=== PATIENT | female | born 1965 | race Caucasian/White ===

== ENCOUNTER → 2017-06-20 | Outpatient (CLI) | payer BC ==
[~2017-06-20] MED LIST: ABX; IBUPROFEN 600600 M1 PO; PEPCID20 MG PO; SYNTHROID137 MCG PO; ZOCOR20 MG PO
== END ==
LOC: RAD 00:38
DX: Z12.31 Encounter for screening mammogram for malignant neoplasm of breast (principal)

== ENCOUNTER → 2018-07-20 | Outpatient (CLI) | payer BC | LOC: RAD 01:19 | DX: Z12.31 Encounter for screening mammogram for malignant neoplasm of breast (principal) ==

== ENCOUNTER → 2018-09-24 | Outpatient (CLI) | payer BC | LOC: ULTRA 12:34 | DX: R11.0 Nausea (principal); R10.11 Right upper quadrant pain ==

== ENCOUNTER → 2019-08-05 | Outpatient (CLI) | payer BC | LOC: RAD 09:48 | DX: Z12.31 Encounter for screening mammogram for malignant neoplasm of breast (principal) ==

== ENCOUNTER 2020-07-20 12:11 | Emergency (ER) | payer OTHER ==
[~2020-07-20] VITALS: Ht 152.4 cm; Wt 70.3 kg
[2020-07-20] MEDS ORDERED: SYNTHROID125 MC1 PO (13:43)
[2020-07-20] MEDS ORDERED: ZOCOR 20 MG TAB20 M1 PO (13:43)
[2020-07-20] MEDS ORDERED: ONDANSETRON HCL4 M2 PO (14:34)
[2020-07-20 14:58] VITALS: BP 187/92
== END 2020-07-20 14:58 | disposition home or self-care (01) ==
LOC: ER 12:11
DX: S06.0X0A Concussion without loss of consciousness, initial encounter (principal); E03.9 Hypothyroidism, unspecified; Z79.899 Other long term (current) drug therapy; W18.39XA Other fall on same level, initial encounter; Y93.89 Activity, other specified; Y92.89 Other specified places as the place of occurrence of the external cause; Y99.0 Civilian activity done for income or pay

== ENCOUNTER → 2020-09-18 | Outpatient (CLI) | payer BC ==
[~2020-09-18] MED LIST changes: +ONDANSETRON HCL4 M2 PO; +SYNTHROID125 MC1 PO; +ZOCOR 20 MG TAB20 M1 PO
== END ==
LOC: BC 13:35
PROVIDERS: ATTEND Family Medicine
DX: Z12.31 Encounter for screening mammogram for malignant neoplasm of breast (principal)

== ENCOUNTER 2021-06-28 10:05 | Inpatient (IN) | payer BC ==
[~2021-06-28] VITALS: Ht 152.4 cm; Wt 55.8 kg
[~2021-06-28 10:05] MED LIST changes: -SYNTHROID137 MCG PO
[2021-06-28 10:10] VITALS: BP 123/64
--- NOTE | 2021-06-28 13:02 | EKG ---
[address] [employer] [address] ELECTROCARDIOGRAM REPORT Name: GEORGEPollyTATYANALEA Deangelo Room #: [facility]#: [id number] Admission: 06/28/21 Attend Phys: Discharge: Date of : 67 Report #: [id number] [facility] ED Test Date: 2021-06-28 Test Time: 10:17:26 Pat Name: LEA CAZARES Department: Room: Gender: F Transition Lead: ELBA : 1965 Requested By: Alesha Nielsen Order Number: [id number] MD: Denys Jiang Measurements Intervals [place] Rate: 88 P: 38 NH: 163 QRS: 29 QRSD: 89 T: 4 QT: 332 QTc: 402 Interpretive Statements Sinus rhythm Probable left atrial enlargement Consider inferior infarct Compared to ECG 03/18/2013 19:36:39 Myocardial infarct finding now present Electronically Signed On 06-28-2021 13:02:12 HAND IRONER by Denys Jiang [email or web address] <ELECTRONICALLY SIGNED> By: Denys Jiang MD, [facility] 06/28/21 1302 [id number] Denys Jiang MD, FACC /EPI
[2021-06-28 13:20] LABS: CALCIUM 8.2 mg/dL (8.5-10.1); CREATININE 0.7 mg/dL (0.6-1.0)
[2021-06-28 13:30] LABS: ALBUMIN 2.9 g/dL (3.4-5.0); TOTAL BILIRUBIN 0.4 mg/dL (0.2-1.0); TOTAL PROTEIN 7.8 g/dL (6.4-8.2)
[2021-06-28 13:34] LABS: HEMATOCRIT 41.6 % (37.0-47.0); HEMOGLOBIN 13.5 gm/dL (12.0-15.0); MCH 25.5 pg (26.0-34.0); MCHC 32.5 g/dL (28.0-37.0); MCV 78.5 fL (80.0-100.0); PLATELET COUNT 244 thou/uL (150-400); RDW 15.4 % (10.5-14.5); WBC 2.8 thou/uL (4.0-11.0)
[2021-06-28 13:46] LABS: APTT 32.8 Seconds (24.5-32.8); D-DIMER 0.33 ug/mLFEU (0.19-0.50); INR 0.96; PROTIME 10.5 Seconds (10.5-12.1)
[2021-06-28 14:02] LABS: ABSOLUTE NEUTROPHILS 2.2 thou/uL (1.4-8.2)
[2021-06-28 20:00] VITALS: BP 107/56
[2021-06-29 02:51] LABS: CREATININE 0.7 mg/dL (0.6-1.0); POTASSIUM 3.6 mmol/L (3.5-5.1)
[2021-06-29 02:54] LABS: ALBUMIN 2.9 g/dL (3.4-5.0); PHOSPHORUS 3.9 mg/dL (2.6-4.7)
[2021-06-29 04:31] VITALS: BP 98/64
[2021-06-29 06:58] VITALS: BP 98/64
[2021-06-29 19:21] VITALS: BP 112/64
[2021-06-30 05:38] VITALS: BP 111/69
[2021-06-30 06:13] LABS: ABSOLUTE NEUTROPHILS 5.3 thou/uL (1.4-8.2); BASOPHILS 0.1 % (0.0-2.0); HEMATOCRIT 38.9 % (37.0-47.0); MCH 25.8 pg (26.0-34.0); MCHC 33.5 g/dL (28.0-37.0); MCV 77.1 fL (80.0-100.0); MONOCYTES 7.3 % (1.0-8.0); POLYS 83.6 % (36.0-66.0); RBC 5.05 mil/uL (4.20-5.00); RDW 15.3 % (10.5-14.5); WBC 6.3 thou/uL (4.0-11.0)
[2021-06-30 06:20] LABS: PLATELET COUNT 361 thou/uL (150-400)
[2021-06-30 06:27] LABS: D-DIMER 0.22 ug/mLFEU (0.19-0.50)
[2021-06-30 06:52] LABS: ALBUMIN 2.7 g/dL (3.4-5.0); ANION GAP 14 mmol/L (7-16); BUN 23 mg/dL (7-18); CALCIUM 8.5 mg/dL (8.5-10.1); CHLORIDE 100 mmol/L (98-107); CO2 24 mmol/L (21-32); CREATININE 0.8 mg/dL (0.6-1.0); DIRECT BILIRUBIN < 0.1 mg/dL (<0.1-0.2); GLUCOSE 140 mg/dL (74-106); PHOSPHORUS 4.3 mg/dL (2.6-4.7); POTASSIUM 3.6 mmol/L (3.5-5.1); SGOT 22 U/L (15-37); SGPT 23 U/L (14-59); SODIUM 138 mmol/L (136-145); TOTAL BILIRUBIN 0.2 mg/dL (0.2-1.0); TOTAL PROTEIN 7.2 g/dL (6.4-8.2)
[2021-06-30 18:19] VITALS: BP 115/68
[2021-06-30 23:30] VITALS: BP 104/64
[2021-07-01 07:08] LABS: ABSOLUTE NEUTROPHILS 5.1 thou/uL (1.4-8.2); BASOPHILS 0.3 % (0.0-2.0); HEMATOCRIT 38.8 % (37.0-47.0); HEMOGLOBIN 13.2 gm/dL (12.0-15.0); LYMPHOCYTES 12.4 % (24.0-44.0); MCH 26.3 pg (26.0-34.0); MCHC 33.9 g/dL (28.0-37.0); MCV 77.4 fL (80.0-100.0); MONOCYTES 8.3 % (1.0-8.0); PLATELET COUNT 375 thou/uL (150-400); RBC 5.01 mil/uL (4.20-5.00); RDW 15.1 % (10.5-14.5); WBC 6.4 thou/uL (4.0-11.0)
[2021-07-01 07:19] LABS: ALBUMIN 2.7 g/dL (3.4-5.0); CALCIUM 8.2 mg/dL (8.5-10.1); CREATININE 0.8 mg/dL (0.6-1.0); POTASSIUM 3.1 mmol/L (3.5-5.1); TOTAL BILIRUBIN 0.4 mg/dL (0.2-1.0); TOTAL PROTEIN 7.1 g/dL (6.4-8.2)
--- NOTE | 2021-07-01 15:30 | NUR ---
PT HAS RESPIRATORY DISTRESS UPON STANDING EACH TIME TO USE THE BATHROOM.
[2021-07-01 20:33] VITALS: BP 110/68
[2021-07-02 00:05] LABS: HIV ANTIBODY Non Reactive (Non Reactive)
[2021-07-02 04:09] VITALS: BP 113/69
[2021-07-02 05:44] LABS: ABSOLUTE NEUTROPHILS 3.6 thou/uL (1.4-8.2); BASOPHILS 0.3 % (0.0-2.0); HEMATOCRIT 41.5 % (37.0-47.0); HEMOGLOBIN 13.8 gm/dL (12.0-15.0); LYMPHOCYTES 16.1 % (24.0-44.0); MCHC 33.1 g/dL (28.0-37.0); MCV 78.4 fL (80.0-100.0); MONOCYTES 11.7 % (1.0-8.0); PLATELET COUNT 429 thou/uL (150-400); POLYS 71.9 % (36.0-66.0); RDW 15.2 % (10.5-14.5)
[2021-07-02 06:09] LABS: ALBUMIN 2.8 g/dL (3.4-5.0); CALCIUM 8.5 mg/dL (8.5-10.1); CREATININE 0.7 mg/dL (0.6-1.0); POTASSIUM 3.5 mmol/L (3.5-5.1); TOTAL BILIRUBIN 0.4 mg/dL (0.2-1.0); TOTAL PROTEIN 7.2 g/dL (6.4-8.2)
[2021-07-02 12:20] VITALS: BP 113/69
--- NOTE | 2021-07-02 17:03 | NUR ---
ELVIN TRIED CALLING PHYSICIAN CONSULT @6248 x3 TIMES AND WAS UNABLE TO GET AHOLD OF ANYONE FOR THE CONSULT.
--- NOTE | 2021-07-02 17:10 | NUR ---
55 year old female presented to the ED on 06/28/21 with worsening COVID symptoms and reports testing positive on 06/23/21. The patient was admitted with Covid pneumonia, SARS and respiratory failure, neutropenia, hyponatremia and reports being unvaccinated. At present the patient is will remain on both antiviral and anti-inflammatory medications and followed by the medical team. 02 remains at 3 liters per NC. Listed as her next of kin is Eladia Rogers at [phone]. HOWEVER noted that daughter is too currently in room 170-17. As care progresses PT/OT orders will need to be obtained and CM will follow for discharge needs as patient had been independent and working prior to admission.
--- NOTE | 2021-07-02 20:00 | NUR ---
PT TRANSFERRED TO 3W. SHE IS ALERT AND ORIENTED X4. ON 3 LITER N/C. DENIES PIAN. MORIAH AND COOPERATIVE. [facility].
[2021-07-02 23:38] VITALS: BP 105/63
[2021-07-03 04:11] VITALS: BP 138/83
[2021-07-03 05:42] LABS: ABSOLUTE NEUTROPHILS 4.9 thou/uL (1.4-8.2); BASOPHILS 0.2 % (0.0-2.0); EOSINOPHILS 0.1 % (0.0-3.0); HEMATOCRIT 42.7 % (37.0-47.0); HEMOGLOBIN 14.1 gm/dL (12.0-15.0); LYMPHOCYTES 13.9 % (24.0-44.0); MCH 25.8 pg (26.0-34.0); MCHC 32.9 g/dL (28.0-37.0); MCV 78.2 fL (80.0-100.0); MONOCYTES 9.3 % (1.0-8.0); PLATELET COUNT 440 thou/uL (150-400); POLYS 76.5 % (36.0-66.0); RBC 5.46 mil/uL (4.20-5.00); RDW 15.2 % (10.5-14.5); WBC 6.4 thou/uL (4.0-11.0)
[2021-07-03 06:33] LABS: CALCIUM 8.6 mg/dL (8.5-10.1); CREATININE 0.7 mg/dL (0.6-1.0); PHOSPHORUS 3.5 mg/dL (2.5-4.9); POTASSIUM 3.4 mmol/L (3.5-5.1)
[2021-07-03 07:46] VITALS: BP 126/74
[2021-07-03 15:45] VITALS: BP 102/64
--- NOTE | 2021-07-03 16:17 | NUR ---
SW reviewed chart and spoke with nursing and attending physician. Pt in Enhanced Isolation due to COVID. Pt is afebrile and on 3L of O2. Pt is on IV steroids and Remdesivir. Rest/exercise oximetry completed earlier today. Pt was 88% on room air and 80% with activity. Pt needed 8L to get to 90%. Attending physician updated. PT/OT evals ordered today to assist with recommendations for discharge. SW is following to assist as needed with discharge planning.
[2021-07-03 19:32] VITALS: BP 140/84
[2021-07-04 04:29] VITALS: BP 128/80
[2021-07-04 05:36] LABS: ANION GAP 11 mmol/L (7-16); BUN 25 mg/dL (7-18); CALCIUM 8.3 mg/dL (8.5-10.1); CHLORIDE 98 mmol/L (98-107); CO2 27 mmol/L (21-32); CREATININE 0.8 mg/dL (0.6-1.0); DIRECT BILIRUBIN < 0.1 mg/dL (<0.1-0.2); GLUCOSE 142 mg/dL (74-106); PHOSPHORUS 4.3 mg/dL (2.5-4.9); POTASSIUM 3.6 mmol/L (3.5-5.1); SGOT 20 U/L (15-37); SGPT 38 U/L (30-65); SODIUM 136 mmol/L (136-145); TOTAL BILIRUBIN 0.3 mg/dL (0.2-1.0); TOTAL PROTEIN 6.6 g/dL (6.4-8.2)
--- NOTE | 2021-07-04 06:46 | NUR ---
ASSUMED CARE OF PT AT 1900. PT ASSESSED TO BE AOX4 55F PRESENTING WITH COVID PNEUMONIA. PT RESTED QUIETLY THROUGHOUT THE NIGHT IN ROOM WITH NO COMPLAINTS, VSS. PT RUNS SR ON TELEMETRY, ON 3L PER NC, SUGARS FAIRLY HIGH, NO SKIN ISSUES, GETS UP TO BEDSIDE COMMODE AD RODOLFO, TAKES PILLS EXTREMELY SLOWLY, AND RESTS QUIETLY WITH AIDE OF SLEEPING PILL. NO FURTHER ISSUES AT THIS TIME, WILL PASS ON TO DAY SHIFT RN.
[2021-07-04 07:40] VITALS: BP 120/78
--- NOTE | 2021-07-04 08:32 | NUR ---
PT AOX4, ON 3LNC BREATHING REGULARLY. NOTED WHEN PT BLOWN NOSE STREAKS OF BLOOD WILL CONTINUE TO MONITOR.
[2021-07-04 14:10] LABS: T-SPOT.TB Negative
--- NOTE | 2021-07-04 15:07 | NUR ---
SHELLY reviewed chart and spoke with nursing and attending physician. Pt remains in Enhanced Isolation due to COVID. Pt is afebrile and on 3L of O2. Pt is on IV steroids and Remdesivir. SW placed call to pt's room. No answer. SW to discuss discharge needs with pt: possible HH and/or Home O2. SHELLY is following to assist as needed with discharge planning.
[2021-07-04 16:26] VITALS: BP 109/71
[2021-07-04 19:12] VITALS: BP 106/66
--- NOTE | 2021-07-04 23:00 | NUR ---
PT RESTING IN BED. O2 PER NC. LOOSE COUGH, DIMINISHED LUNGS. PT TALKING ON PHONE. INDEP WITH TRANSFER TO [facility], CALLS FOR ASSISTANCE. PROVIDED HS SNACK.
[2021-07-05 03:12] VITALS: BP 130/74
[2021-07-05 04:03] LABS: ALBUMIN 3.2 g/dL (3.4-5.0); ANION GAP 9 mmol/L (7-16); BUN 26 mg/dL (7-18); CALCIUM 8.6 mg/dL (8.5-10.1); CHLORIDE 98 mmol/L (98-107); CO2 29 mmol/L (21-32); CREATININE 0.6 mg/dL (0.6-1.0); DIRECT BILIRUBIN < 0.1 mg/dL (<0.1-0.2); GLUCOSE 125 mg/dL (74-106); PHOSPHORUS 4.1 mg/dL (2.5-4.9); POTASSIUM 3.5 mmol/L (3.5-5.1); SGOT 15 U/L (15-37); SGPT 34 U/L (30-65); SODIUM 136 mmol/L (136-145); TOTAL BILIRUBIN 0.3 mg/dL (0.2-1.0); TOTAL PROTEIN 6.9 g/dL (6.4-8.2)
[2021-07-05 10:07] VITALS: BP 103/50
--- NOTE | 2021-07-05 15:30 | NUR ---
SW reviewed chart and spoke with nursing and attending physician. Pt remains in Enhanced Isolation due to COVID. Pt is afebrile and on 2L of O2. Pt is on IV steroids and Remdesivir. PT/OT ordered. SW spoke with pt via phone. Introduced role of SW. Pt reports she lives at home with family. Prior to admission, pt was independent with ADLs. No use of DME. Pt is employed. There are about 15 steps in their split-level home. Pt's family also have COVID. Pt's PCP is Dr. Eusebio Eli. No hx of HH services or post-acute placement. SW discussed possible discharge needs: HH and/or Home O2. Pt is agreeable if needed. SW is following to assist as needed with discharge planning.
[2021-07-05 16:02] VITALS: BP 101/66
--- NOTE | 2021-07-05 17:52 | NUR ---
PT A+O X4. PT COUGHING UP BLOOD THIS AM AND BLOWING NOSE WITH BLOOD. DR NOTIFIED AND ORDERED A D-DIMER, 1.38. NO COMPLAINTS OF PAIN. PT UP TO CHAIR FOR HOURS THIS AFTERNOON. WILL CONTINUE TO MONITOR.
[2021-07-05 19:30] VITALS: BP 106/63
--- NOTE | 2021-07-05 22:38 | NUR ---
PT RESTING IN BED, NC 2L. LUNGS DIMINISHED. PT HOPING TO DC TOMORROW. PT PROVIDED MULTIPLE HS SNACKS. BLUNTED AFFECT. INDEP WITH TRANSFERS TO [facility]. CALLS FOR ASSIST.
[2021-07-06 02:54] LABS: ABSOLUTE NEUTROPHILS 6.3 thou/uL (1.4-8.2); BASOPHILS 0.1 % (0.0-2.0); EOSINOPHILS 0.1 % (0.0-3.0); HEMATOCRIT 41.3 % (37.0-47.0); HEMOGLOBIN 13.5 gm/dL (12.0-15.0); MCH 25.2 pg (26.0-34.0); MCHC 32.6 g/dL (28.0-37.0); MCV 77.4 fL (80.0-100.0); PLATELET COUNT 479 thou/uL (150-400); POLYS 74.8 % (36.0-66.0); RBC 5.34 mil/uL (4.20-5.00); RDW 15.2 % (10.5-14.5); WBC 8.4 thou/uL (4.0-11.0)
[2021-07-06 03:25] VITALS: BP 117/73
[2021-07-06 03:28] LABS: ALBUMIN 2.8 g/dL (3.4-5.0); ANION GAP 8 mmol/L (7-16); BUN 25 mg/dL (7-18); CALCIUM 8.5 mg/dL (8.5-10.1); CHLORIDE 98 mmol/L (98-107); CO2 32 mmol/L (21-32); CREATININE 0.8 mg/dL (0.6-1.0); DIRECT BILIRUBIN < 0.1 mg/dL (<0.1-0.2); GLUCOSE 151 mg/dL (74-106); PHOSPHORUS 3.9 mg/dL (2.5-4.9); POTASSIUM 3.4 mmol/L (3.5-5.1); SGOT 15 U/L (15-37); SGPT 26 U/L (30-65); SODIUM 138 mmol/L (136-145); TOTAL BILIRUBIN 0.3 mg/dL (0.2-1.0); TOTAL PROTEIN 6.6 g/dL (6.4-8.2)
[2021-07-06 07:20] VITALS: BP 124/69
--- NOTE | 2021-07-06 10:53 | NUR ---
Assess due to length of stay. Admit with COVID+ pneumonia. Intake has been good and pt tolerating regular diet. Likely discharge soon, Low nutrition risk
[2021-07-06 12:25] VITALS: BP 124/69
--- NOTE | 2021-07-06 12:26 | NUR ---
DISCHARGE NOTE: SHELLY reviewed chart and spoke with nursing and attending physician. Pt remains in Enhanced Isolation due to COVID. Pt is medically stable to discharge home today. Rest/exercise oximetry completed today. Pt requires 2L of O2 with activity. SHELLY spoke with pt via phone to discuss discharge plan. Pt is aware and in agreement with discharge plan. Options for DME providede. No preference voiced. SHELLY confirmed pt's home address and phone number. Pt declines HH referral at this time. SW explained that a portable O2 tank will be delivered to her room and then she will need to call [facility] when she leaves the hospital, in order to coordinate the delivery of her home O2 equipment. Pt verbalized understanding and is agreeable with discharge plan. Pt's dtr to provide transportation home. SHELLY faxed referral, testing and script for O2 [facility]. Received fax confirmation. Notified [facility] liaison of new referral. Portable O2 tank provided to pt's nurse. Contact info for [facility] placed in pt's discharge summary. No additional SW needs identified at this time. SHELLY is available to assist should needs arise.
[2021-07-06] MEDS ORDERED: DEXAMETHASONE6 MG PO (12:32)
[2021-07-06 13:14] VITALS: BP 124/69
[2021-07-06 13:20] VITALS: BP 124/69
--- NOTE | 2021-07-06 16:04 | NUR ---
DISCHARGE NOTE: GIVEN DISCHARGE INFORMATION AND SIGNED VERBAL CONSENT. NEW MEDICATION INFORMATION GIVEN TO PT. WENT OVER UPCOMING APPOINTMENTS. DC'D IV AND TELEMETRY. GIVEN INFOMRATION ABOUT HOW TO USE HOME OXYGEN AND INFO ABOUT [facility]. ALL BELONGINGS WITH PT. PT DISHCHARGING WITH DAUGHTER, WHO IS ALSO DC'ING FROM 349.
== END 2021-07-06 15:00 | disposition home or self-care (01) | DRG 177 ==
LOC: ER 10:05 → EROBS 15:23 → 3W 07-02 19:39
PROVIDERS: Nurse Practitioner Family; Specialist; ADMIT Hospitalist; ATTEND Hospitalist
PROC: XW033E5 Introduction of Remdesivir Anti-infective into Peripheral Vein, Percutaneous Approach, New Technology Group 5 (ICD-10-PCS; principal; 2021-06-28)
PROC: 5A0935A Assistance with Respiratory Ventilation, Less than 24 Consecutive Hours, High Flow/Velocity Cannula (ICD-10-PCS; 2021-07-01)
DX: U07.1 COVID-19 (principal); J96.01 Acute respiratory failure with hypoxia; J12.82 Pneumonia due to coronavirus disease 2019; E03.9 Hypothyroidism, unspecified; D70.9 Neutropenia, unspecified; Z83.3 Family history of diabetes mellitus; Z82.49 Family history of ischemic heart disease and other diseases of the circulatory system
CPT/HCPCS: 10879